=== PATIENT | male | born 1940 | race Caucasian/White ===

== ENCOUNTER → 2019-06-08 | Outpatient (CLI) | payer OTHER ==
[~2019-06-08] MED LIST: AMLODIPINE; AMLODIPINE BESY10 MG PO; ATORVASTATIN CA40 MG PO; BACTRIM DS TAB1 EACH PO; BAYER CHEWABLE81 MG PO; CALCIUM 600 +1 EAC1 PO; CENTRUM SILVER1 EAC4 PO; CIPRO500 MG PO; DOXYCYCLINE 10100 MG PO; HYDROCHLOROTHIA25 GM PO; LANTUS100 UNIT/M SUBQ; LEVOTHROID137 MCG PO; LISINOPRIL; LORTAB 5 MG/5001 TA1 PO; MEDROL DOSPAK21 TAB PO; METFORMIN; METFORMIN HCL1000 M1 PO; MUCINEX DM ER1 EACH PO; OMEGA-31000 M1 PO; PERCOCET PO; PHENAZOPYRIDIN200 M2 PO; PRILOSEC20 MG PO; VITAMIN B122500 MCG PO; VITAMINC500 PO; ZESTRIL20 MG PO; ZOCOR 10 MG TAB10 MG; ZPAK PO
[2019-06-08 12:34] LABS: ALBUMIN 3.6 g/dL (3.4-5.0); CALCIUM 10.2 mg/dL (8.5-10.1); CREATININE 1.1 mg/dL (0.6-1.3); POTASSIUM 4.2 mmol/L (3.5-5.1); TOTAL BILIRUBIN 0.4 mg/dL (<0.1-1.0)
== END ==
LOC: M.LAB 11:59
PROVIDERS: Registered Nurse
DX: I10 Essential (primary) hypertension (principal)

== ENCOUNTER 2019-11-06 10:56 | Emergency (ER) | payer OTHER ==
[~2019-11-06] VITALS: Ht 185.4 cm; Wt 93.0 kg
[2019-11-06 11:49] LABS: INFLUENZA A ANTIGEN Negative (Negative); INFLUENZA B ANTIGEN Negative (Negative)
[2019-11-06] MEDS ORDERED: DOXYCYCLINE 10100 MG PO (12:32)
[2019-11-06] MEDS ORDERED: NASONEX17 GM NASAL (12:32)
[2019-11-06] MEDS ORDERED: TYLENOL WITH CO1 TA1 PO (12:32)
== END 2019-11-06 12:41 | disposition home or self-care (01) ==
LOC: M.ERS 10:56
PROVIDERS: Physician Assistant
DX: J01.90 Acute sinusitis, unspecified (principal); I10 Essential (primary) hypertension; I25.10 Atherosclerotic heart disease of native coronary artery without angina pectoris; E11.9 Type 2 diabetes mellitus without complications; E03.9 Hypothyroidism, unspecified; Z90.49 Acquired absence of other specified parts of digestive tract; Z90.89 Acquired absence of other organs; Z88.1 Allergy status to other antibiotic agents; Z88.0 Allergy status to penicillin

== ENCOUNTER 2019-11-09 07:40 | Emergency (ER) | payer OTHER ==
[~2019-11-09] VITALS: Ht 185.4 cm; Wt 90.7 kg
[~2019-11-09 07:40] MED LIST changes: +NASONEX17 GM NASAL; +TYLENOL WITH CO1 TA1 PO
[2019-11-09] MEDS ORDERED: ACETAMINOPHEN-1 EAC2 PO (08:13)
[2019-11-09] MEDS ORDERED: PHENERGAN 25 MG25 M1 PO (08:13)
== END 2019-11-09 09:33 | disposition home or self-care (01) ==
LOC: M.ERS 07:40
DX: R09.81 Nasal congestion (principal); I10 Essential (primary) hypertension; I25.10 Atherosclerotic heart disease of native coronary artery without angina pectoris; E11.9 Type 2 diabetes mellitus without complications; E03.9 Hypothyroidism, unspecified; Z90.49 Acquired absence of other specified parts of digestive tract; Z88.0 Allergy status to penicillin; Z88.1 Allergy status to other antibiotic agents; Z79.4 Long term (current) use of insulin